=== PATIENT | female | born 1945 | race American Indian/Alaskan Native ===

== ENCOUNTER 2018-03-12 16:45 | Inpatient (IN) | payer MEDICARE ==
[2018-03-12] MEDS ORDERED: Sodium Chloride 0.9% 1,000 ML IV STA (17:32)
--- NOTE | 2018-03-12 17:52 | ED PDOC ---
Syncope/Near Syncope/Dizziness History Per: Patient Additional Complaint(s): 73 y/o with a PMHx of HTN and osteoarthritis presents to ED complaining of lightheadedness and nausea since lunchtime today. Pt reports feeling lightheaded, weak, nauseaous and vomiting a few episodes, vomit was non-bloody and non-bilious. Pt reports not eating anything today but taking Metoprolol on empty stomach. Pt usually eats once or twice a day. Pt feels pressure on her head. Pt denies feeling like the room is spinning aorund her. Pt return from [facility] 1 week ago. Pt denies fever, visual disturbances, hearing deficit, chest pain, SOB, abdominal pain, rash or periphera edema. PMD: Dr Shaikh/Dr Martha BECKER Meds: Metoprolol PMHx: HTN PSHx: denied SHx: denies tobacco, alcohol or rec drugs. <Jose Galvan - Last Filed: 03/12/18 19:00> <Kelsey Betancourt - Last Filed: 03/13/18 22:42> Time Seen by Provider: 03/12/18 17:07 Chief Complaint (Nursing): Dizziness/Lightheaded Supervising Attending Note - Attestation: I have personally seen and examined this patient.: Yes I have fully participated in the care of the patient.: Yes I have reviewed all pertinent clinical information: Yes - Notes: Notes:: Pt states prior to a flight from [place] last week she felt dizzy and unsteady while ambulating, almost fell three times, sxs improved somewhat since then. Today she was walking when she felt lightheaded again and vomited >3 times. Denies CL[place], extremity weakness or paresthesias, CP, SOB, visual changes. PHYSICAL EXAM: HEAD: NCAT EYES: PERRL, EOMI, no nystagmus NECK: Supple NEURO: no facial droop, MS 5/5, sensation intact, FTN intact, HTS intact 20:[address] Hernandes, recommends CTA, ASA and permissive HTN (treat only if >220/110). <Kelsey Betancourt - Last Filed: 03/13/18 22:42> NIHSS Stroke Scale - How Severe is the Stroke Level of Consciousness: 0=Alert LOC to Questions: 0=Both comments correct LOC to commands: 0=Obeys both correctly Best Gaze: 0=Normal Visual: 0=No visual loss Facial: 0=Normal Motor Arm - Left: 0=No drift Motor Arm - Right: 0=No drift Motor Leg - Left: 0=No drift Motor Leg - Right: 0=No drift Limb Ataxia: 0=Absent Sensory: 0=Normal Best Language: 0=No aphasia Dysarthia: 0=Normal articulation Extinction & Inattention (Neglect): 0=Normal, no object Score: 0 <BetancourtRichard weira Denise - Last Filed: 03/13/18 22:42> Past Medical History Vital Signs: Last Vital Signs Temp 97.7 F 03/12/18 16:49 Pulse 55 L 03/12/18 16:49 Resp 20 03/12/18 16:49 BP 143/103 H 03/12/18 16:49 Pulse Ox 99 03/12/18 16:49 - Medical History PMH: HTN - Surgical History Surgical History: No Surg Hx - Family History Family History: States: Unknown Family Hx - Living Arrangements Living Arrangements: With Family - Social History Current smoker - smoking cessation education provided: No Alcohol: None Drugs: Denies <Jose Galvan - Last Filed: 03/12/18 19:00> Vital Signs: Last Vital Signs Temp 97.7 F 03/12/18 16:49 Pulse 55 L 03/12/18 16:49 Resp 20 03/12/18 16:49 BP 143/103 H 03/12/18 16:49 Pulse Ox 99 03/12/18 19:00 - Family History Family History: States: Unknown Family Hx <Kelsey Betancourt - Last Filed: 03/13/18 22:42> - Home Medications Home Medications: Ambulatory Orders Medication Instructions Recorded RX: Etodolac 500 mg PO BID 03/12/18 RX: Simvastatin [Zocor] 20 mg PO HS 03/12/18 RX: Metoprolol Succinate 100 mg PO DAILY #30 tab.er.24h 03/13/18 - Allergies Allergies/Adverse Reactions: Allergies Allergy/AdvReac Type Severity Reaction Status Date / Time iodine Allergy RASH Verified 03/12/18 16:49 Review of Systems Constitutional: Negative for: Fever, Chills ENT: Negative for: Nose Congestion, Throat Pain, Throat Swelling Cardiovascular: Negative for: Chest Pain, Palpitations Respiratory: Negative for: Cough, Shortness of Breath, Sputum Gastrointestinal: Positive for: Nausea, Vomiting. Negative for: Abdominal Pain, Diarrhea, Constipation Genitourinary Female: Negative for: Dysuria, Frequency, Hematuria Musculoskeletal: Negative for: Back Pain, Leg Pain Skin: Negative for: Rash Neurological: Negative for: Weakness, Numbness Psych: Negative for: Anxiety, Depression <Jose Galvan - Last Filed: 03/12/18 19:00> Physical Exam - Physical Exam Appears: Positive for: Uncomfortable Head Exam: Positive for: ATRAUMATIC, NORMAL INSPECTION Eye Exam: Positive for: EOMI, PERRL. Negative for: Nystagmus, Periorbital swelling ENT: Negative for: Nasal Congestion, Pharyngeal Erythema, Tonsillar Exudate Neck: Positive for: Normal, Supple Cardiovascular/Chest: Positive for: Regular Rate, Rhythm Respiratory: Positive for: Normal Breath Sounds Gastrointestinal/Abdominal: Positive for: Bowel Sounds, Soft. Negative for: Tenderness, Organomegaly, Distended, Guarding Extremity: Positive for: Normal ROM. Negative for: Tenderness, Pedal Edema, Calf Tenderness Neurologic/Psych: Positive for: Alert, mattress filler II-XII (grossly intact), Oriented <Jose Galvan - Last Filed: 03/12/18 19:00> - ECG O2 Sat by Pulse Oximetry: 99 <Jose Galvan - Last Filed: 03/12/18 19:00> - Laboratory Results Result Diagrams: 03/12/18 19:06 03/12/18 19:58 <Kelsey Betancourt - Last Filed: 03/13/18 22:42> Medical Decision Making Medical Decision Makin:30, pt was evaluated and examined by bedside. Pt is resting on bed, has a vomit bag on her hands. --EKG --CBC, CMP, urinalysis, troponin I, --Chest X-ray, Head CT. --IV fluids and Zofran. <Jose Galvan - Last Filed: 03/12/18 19:00> Disposition <Jose Galvan - Last Filed: 03/12/18 19:00> - Patient ED Disposition Is Patient to be Admitted: Yes - Disposition Disposition Time: 21:30 - Pt Status Changed To: Hospital Disposition Of: Inpatient - Admit Certification Admit to Inpatient:: After my assessment, the patient will require hospitalization for at least two midnights. This is because of the severity of symptoms shown, intensity of services needed, and/or the medical risk in this patient being treated as an outpatient. - POA Present On Arrival: None <Kelsey Betancourt - Last Filed: 03/13/18 22:42> - Clinical Impression Clinical Impression: Dizziness, Left maxillary sinusitis, T wave inversion on electrocardiogram - Disposition Condition: STABLE - PA / DOWELING MACHINE OPERATOR / Resident Statement MD/DO has examined the patient and agrees with the treatment plan. <Kelsey Betancourt - Last Filed: 03/13/18 22:42>
--- NOTE | 2018-03-12 18:50 | CT ---
Date of service: 03/12/2018 PROCEDURE: CT HEAD WITHOUT CONTRAST. HISTORY: Dizziness COMPARISON: None available TECHNIQUE: Axial computed tomography images were obtained through the head/brain without intravenous contrast. Radiation dose: Total exam DLP = 851.09 mGy-cm. This CT exam was performed using one or more of the following dose reduction techniques: Automated exposure control, adjustment of the mA and/or kV according to patient size, and/or use of iterative reconstruction technique. FINDINGS: HEMORRHAGE: No intracranial hemorrhage. BRAIN: No mass effect or edema. Minimal chronic periventricular white matter ischemic change. No atrophy. VENTRICLES: Unremarkable. No hydrocephalus. CALVARIUM: Unremarkable PARANASAL SINUSES: There is soft tissue density and gas within the left maxillary sinus. There is mild medial bowing of the medial wall of the left maxillary sinus. There is some curvilinear calcifications seen within the sinus. Only a portion of the left maxillary sinus is included in this examination. Findings may reflect abscess/acute sinusitis although the presence of calcification also raises suspicion of allergic fungal sinusitis. This is not consistent with the presence of gas, however. Recommend evaluation with CT of the paranasal sinuses. The remaining paranasal sinuses are unremarkable. MASTOID AIR CELLS: Unremarkable as visualized. No inflammatory changes. OTHER FINDINGS: None. IMPRESSION: Possible acute left maxillary sinusitis. Recommend CT paranasal sinuses. No other acute abnormality.
--- NOTE | 2018-03-12 19:00 | RAD ---
Date of service: 03/12/2018 HISTORY: Vomiting COMPARISON: No prior. TECHNIQUE: Chest PA and lateral FINDINGS: LUNGS: No active pulmonary disease. PLEURA: No significant pleural effusion identified. No pneumothorax apparent. CARDIOVASCULAR: Normal. OSSEOUS STRUCTURES: No significant abnormalities. VISUALIZED UPPER ABDOMEN: Normal. OTHER FINDINGS: None. IMPRESSION: No active disease.
[2018-03-12 19:13] LABS: BASO % 0.1 % (0.0-2.0); EOS % 0.3 % (0.0-4.0); HEMOGLOBIN 14.4 g/dL (12.0-16.0); LYMPH # 1.2 K/uL (1.0-4.3); LYMPH % 11.9 % (20.0-40.0); MEAN CELL VOLUME 85.2 fl (81.0-99.0); MEAN CORPUSCULAR HEMOGLOBIN 27.5 pg (27.0-31.0); MEAN CORPUSCULAR HGB CONC 32.3 g/dL (33.0-37.0); MEAN PLATELET VOLUME 8.8 fl (7.2-11.7); MONO # 0.4 K/uL (0.0-0.8); MONO % 3.6 % (0.0-10.0); NEUT # 8.4 K/uL (1.8-7.0); NEUT % 84.1 % (50.0-75.0); RBC 5.23 Mil/uL (3.80-5.20); RED CELL DISTRIBUTION WIDTH 15.1 % (11.5-14.5); WHITE BLOOD COUNT 9.9 K/uL (4.8-10.8)
[2018-03-12 19:20] LABS: BLOOD UREA NITROGEN 15 mg/dl (7-17); GFR NON-AFRICAN AMERICAN > 60
[2018-03-12 19:29] LABS: ALB/GLOB RATIO 0.9 (1.0-2.1); ALBUMIN 4.3 g/dL (3.5-5.0); ALT/SGPT 25 U/L (9-52); AST/SGOT 47 U/L (14-36)
--- NOTE | 2018-03-12 22:02 | CP.PCM.HP ---
<Perez Sorensen - Last Filed: 03/12/18 22:42> History of Present Illness - History of Present Illness History of Present Illness: CC: "merced been dizzy all week and today it got worse" HPI: 73 y/o female with PMHx of HTN and OA presented for evaluation of worsening dizziness. Pt reports symptoms started last in the airport. She had sudden onset of dizziness after using the bathroom. It was associated with gait instability, nausea and several episodes of forward falls, but no history of injury or trauma. Symptoms remained stable and did not bother the pt during the week. Today her symptoms acutely worsened when she got out of bed. The dizziness is described as feeling "on a boat and spinning inside my head". She reports having worsened unstable gait and has fallen over several times today, but once again without injury. She had about 4-5 episodes of vomiting due to the nausea accompanied with the dizziness. Denies recent illness. no numbness/tingling. No fever/chills. No difficulty speaking or swallowing. Took her metoprolol as prescibed. No associated CP/SOB/palpitations. No urinary symptoms. ROS: as per HPI, 12 systems reviewed PMD: Martha PMHx: HTN, OA Meds: Metoprolol 100mg BID ALL: Iodine (rash) PSurgHx: denies SocialHx: former tobacco abuse, denies etoh/drugs Familyhx: unremarkable Present on Admission - Present on Admission Any Indicators Present on Admission: No History of DVT/PE: No History of Uncontrolled Diabetes: No Urinary Catheter: No Decubitus Ulcer Present: No Past Patient History - Past Social History Smoking Status: Former Smoker Alcohol: None Drugs: Denies Home Situation {Lives}: With Family - CARDIAC Hx Hypertension: Yes - PSYCHIATRIC Hx Substance Use: No Meds Allergies/Adverse Reactions: Allergies Allergy/AdvReac Type Severity Reaction Status Date / Time iodine Allergy RASH Verified 03/12/18 16:49 Physical Exam - Constitutional Appears: Well, Non-toxic, No Acute Distress - Head Exam Head Exam: ATRAUMATIC, NORMOCEPHALIC - Eye Exam Eye Exam: EOMI, Normal appearance, PERRL. absent: Nystagmus Pupil Exam: NORMAL ACCOMODATION. absent: Miosis, Mydriatic, Unequal - ENT Exam ENT Exam: Mucous Membranes Moist - Neck Exam Neck exam: Positive for: Full Rom. Negative for: Lymphadenopathy - Respiratory Exam Respiratory Exam: Clear to Auscultation Bilateral, NORMAL BREATHING PATTERN. absent: Accessory Muscle Use, Prolonged Expiratory Phase, Rales, Rhonchi, Wheezes - Cardiovascular Exam Cardiovascular Exam: REGULAR RHYTHM, RRR, +S1, +S2. absent: Bradycardia, Tachy cardia, Irregular Rhythm, JVD, Rubs, Systolic Murmur - GI/Abdominal Exam GI & Abdominal Exam: Normal Bowel Sounds, Soft. absent: Tenderness - Extremities Exam Extremities exam: Positive for: normal capillary refill, normal inspection, pedal pulses present. Negative for: calf tenderness, pedal edema, tenderness - Neurological Exam Neurological exam: Alert, CN II-XII Intact, Normal Gait, Oriented x3, Reflexes Normal - Expanded Neurological Exam Expanded Patient oriented to: person, place, time Cranial nerves: EOM's Intact: Normal, Facial Palsey w/Forehead Movement: Normal, Facial Palsey w/o Forehead Movement: Normal, Facial Sensation: Normal, Gag Reflex: Normal, Nystagmus: Normal, Tongue Deviation: Normal Ataxia: No Cerebellar Function: Finger to Nose: Normal, Heel to Ragland: Normal, Romberg: Normal Upper motor neuron: Babinski Sign: Normal, Perez Neglect: Normal, Pronator Drift: Normal, Sensory Extinction: Normal Neuro motor strength exam: Left Upper Extremity: 5, Right Upper Extremity: 5, Left Lower Extremity: 5, Right Lower Extremity: 5 DTR: Patellar Left: 2+, Patellar Right: 2+ Coma Scale Eye Opening: SPONTANEOUS Coma Scale Motor Response: OBEYS COMMANDS Coma Scale Verbal: Oriented Coma Scale Total: 15 - Psychiatric Exam Psychiatric exam: Normal Affect, Normal Mood - Skin Skin Exam: Dry, Normal Color, Warm Results - Vital Signs Recent Vital Signs: Last Vital Signs Temp 97.7 F 03/12/18 16:49 Pulse 55 L 03/12/18 16:49 Resp 20 03/12/18 16:49 BP 143/103 H 03/12/18 16:49 Pulse Ox 99 03/12/18 19:00 - Labs Result Diagrams: 03/12/18 19:06 03/12/18 19:58 Labs: Laboratory Results - last 24 hr 03/12/18 03/12/18 03/12/18 17:38 17:45 19:06 WBC 9.9 RBC 5.23 H Hgb 14.4 Hct 44.6 MCV 85.2 MCH 27.5 MCHC 32.3 L RDW 15.1 H Plt Count 200 MPV 8.8 Neut % (Auto) 84.1 H Lymph % (Auto) 11.9 L Mcmullen % (Auto) 3.6 Eos % (Auto) 0.3 Baso % (Auto) 0.1 Neut # (Auto) 8.4 H Lymph # (Auto) 1.2 Mcmullen # (Auto) 0.4 Eos # (Auto) 0.0 Baso # (Auto) 0.0 Sodium Potassium Chloride Carbon Dioxide Anion Gap BUN Creatinine Est GFR ( Amer) Est GFR (Non-Af Amer) POC Glucose (mg/dL) 95 113 H Random Glucose Calcium Total Bilirubin AST ALT Alkaline Phosphatase Troponin I Total Protein Albumin Globulin Albumin/Globulin Ratio 03/12/18 03/12/18 19:06 19:58 WBC RBC Hgb Hct MCV MCH MCHC RDW Plt Count MPV Neut % (Auto) Lymph % (Auto) Mcmullen % (Auto) Eos % (Auto) Baso % (Auto) Neut # (Auto) Lymph # (Auto) Mcmullen # (Auto) Eos # (Auto) Baso # (Auto) Sodium 139 Potassium 6.0 H 4.2 Chloride 106 Carbon Dioxide 26 Anion Gap 13 BUN 15 Creatinine 0.6 L Est GFR ( Amer) > 60 Est GFR (Non-Af Amer) > 60 POC Glucose (mg/dL) Random Glucose 110 H Calcium 9.0 Total Bilirubin 1.3 AST 47 H ALT 25 Alkaline Phosphatase 66 Troponin I 0.0130 Total Protein 9.0 H Albumin 4.3 Globulin 4.7 H Albumin/Globulin Ratio 0.9 L Assessment & Plan - Assessment and Plan (Free Text) Assessment: 73 y/o female with PMHx of HTN and OA admitted for intractable dizziness and abnormal EKG. Plan: 1) Dizziness -head CT: possible sinusitis, otherwise unremarkable -Maxillofacial CT: complete opacification of left maxillary sinus (asymptomatic) -ENT consult pending -head neck CTA: pending -permissive HTN as per neurology -neuro consult, f/u recs -s/p ASA -tele monitoring -PT/OT -Lipid panel/Hba1c pending 2) Abnormal EKG -bradycardia @ 55bpm, LAD, 1st degree AV block, QTc prolongation @ 478, T-wave inversions in lateral leads, LVH criteria, -no prior EKGs available for comparison -troponin <0.0120 -trend troponin Q6H -repeat EKG in am -echo in am -cardiology consult pending -hold metoprolol 3) Hypertension -stable -permissive HTN -treat only >220/110 -hold metoprolol 100mg BID -monitor 4) Prophylaxis -Lovenox 40gm SC QD 5) Diet -heart healthy 6) Code Status -full code <Andrew Camargo - Last Filed: 03/13/18 08:27> Results - Vital Signs Recent Vital Signs: Last Vital Signs Temp 97.6 F 03/13/18 05:00 Pulse 97 H 03/13/18 05:00 Resp 18 03/13/18 05:00 BP 163/91 H 03/13/18 05:00 Pulse Ox 98 03/13/18 05:00 - Labs Result Diagrams: 03/12/18 19:06 03/12/18 19:58 Labs: Laboratory Results - last 24 hr 03/12/18 03/12/18 03/12/18 17:38 17:45 19:06 WBC 9.9 RBC 5.23 H Hgb 14.4 Hct 44.6 MCV 85.2 MCH 27.5 MCHC 32.3 L RDW 15.1 H Plt Count 200 MPV 8.8 Neut % (Auto) 84.1 H Lymph % (Auto) 11.9 L Mcmullen % (Auto) 3.6 Eos % (Auto) 0.3 Baso % (Auto) 0.1 Neut # (Auto) 8.4 H Lymph # (Auto) 1.2 Mcmullen # (Auto) 0.4 Eos # (Auto) 0.0 Baso # (Auto) 0.0 D-Dimer, Quantitative Sodium Potassium Chloride Carbon Dioxide Anion Gap BUN Creatinine Est GFR ( Amer) Est GFR (Non-Af Amer) POC Glucose (mg/dL) 95 113 H Random Glucose Calcium Total Bilirubin AST ALT Alkaline Phosphatase Troponin I Total Protein Albumin Globulin Albumin/Globulin Ratio Triglycerides Cholesterol LDL Cholesterol Direct HDL Cholesterol TSH 3rd Generation Urine Color Urine Clarity Urine pH Ur Specific Arbela Urine Protein Urine Glucose (UA) Urine Ketones Urine Blood Urine Nitrate Urine Bilirubin Urine Urobilinogen Ur Leukocyte Esterase Urine RBC (Auto) Urine Microscopic WBC Ur Squamous Epith Cells Urine Bacteria 03/12/18 03/12/18 03/12/18 19:06 19:58 22:02 WBC RBC Hgb Hct MCV MCH MCHC RDW Plt Count MPV Neut % (Auto) Lymph % (Auto) Mcmullen % (Auto) Eos % (Auto) Baso % (Auto) Neut # (Auto) Lymph # (Auto) Mcmullen # (Auto) Eos # (Auto) Baso # (Auto) D-Dimer, Quantitative Sodium 139 Potassium 6.0 H 4.2 Chloride 106 Carbon Dioxide 26 Anion Gap 13 BUN 15 Creatinine 0.6 L Est GFR ( Amer) > 60 Est GFR (Non-Af Amer) > 60 POC Glucose (mg/dL) Random Glucose 110 H Calcium 9.0 Total Bilirubin 1.3 AST 47 H ALT 25 Alkaline Phosphatase 66 Troponin I 0.0130 Total Protein 9.0 H Albumin 4.3 Globulin 4.7 H Albumin/Globulin Ratio 0.9 L Triglycerides Cholesterol LDL Cholesterol Direct HDL Cholesterol TSH 3rd Generation 0.50 Urine Color Yellow Urine Clarity Cloudy Urine pH 7.0 Ur Specific Arbela 1.014 Urine Protein Negative Urine Glucose (UA) Neg Urine Ketones Negative Urine Blood Negative Urine Nitrate Negative Urine Bilirubin Negative Urine Urobilinogen 2.0 H Ur Leukocyte Esterase Small Urine RBC (Auto) 3 Urine Microscopic WBC 10 H Ur Squamous Epith Cells 9 H Urine Bacteria Rare 03/13/18 03/13/18 03/13/18 00:02 01:33 01:33 WBC RBC Hgb Hct MCV MCH MCHC RDW Plt Count MPV Neut % (Auto) Lymph % (Auto) Mcmullen % (Auto) Eos % (Auto) Baso % (Auto) Neut # (Auto) Lymph # (Auto) Mcmullen # (Auto) Eos # (Auto) Baso # (Auto) D-Dimer, Quantitative 229 Sodium Potassium Chloride Carbon Dioxide Anion Gap BUN Creatinine Est GFR ( Amer) Est GFR (Non-Af Amer) POC Glucose (mg/dL) Random Glucose Calcium Total Bilirubin AST ALT Alkaline Phosphatase Troponin I < 0.0120 Total Protein Albumin Globulin Albumin/Globulin Ratio Triglycerides 128 Cholesterol 222 H LDL Cholesterol Direct 134 H HDL Cholesterol 46 TSH 3rd Generation Urine Color Urine Clarity Urine pH Ur Specific Arbela Urine Protein Urine Glucose (UA) Urine Ketones Urine Blood Urine Nitrate Urine Bilirubin Urine Urobilinogen Ur Leukocyte Esterase Urine RBC (Auto) Urine Microscopic WBC Ur Squamous Epith Cells Urine Bacteria Attending/Attestation - Attestation I have personally seen and examined this patient.: Yes I have fully participated in the care of the patient.: Yes I have reviewed all pertinent clinical information: Yes Notes (Text): 03/13/18 08:17 I saw and examined this patient shoulder to shoulder with Dr Sorensen. I agree with the assessment and plan outlined. This is a 73 years old female with hx of HTN. she comes with one week of dizziness, lightheadedness, clogged ears after traveling on a plane. No headaches nor chest pain.The CT head showed no hemorrhage nor sigh of Infarction. the CT of the Maxilo facial showed the left Maxillary sinus Opaci fied. Alco the EKG was significantly abnormal with T wave inversion in leads I, aVL, V4-6 with first degree AV block and Qtc prolongation. We will follow ENT consult for the Left Maxillary Sinus Opacity with the Ear clogging and the dizziness. Neuro consult to evaluate for Cerebellar Infarction and Cardiology to evaluate the abnormal EKG and the probability of Othostatic hypotension fom the Lopressor.
--- NOTE | 2018-03-12 22:05 | CARD ---
APPROVED REPORT Date of service: 03/12/2018 EKG Measurement Heart [id number] <Conclusion> Sinus bradycardia with 1st degree AV block Voltage criteria for left ventricular hypertrophy T wave abnormality, consider lateral ischemia Prolonged QT Abnormal ECG
[2018-03-12] MEDS ORDERED: DiphenhydrAMINE 50 mg/ml Inj IVP STA (22:08)
[2018-03-12 22:13] LABS: SQUAMOUS EPITHIAL 9 /hpf (0-5); URINE BACTERIA RARE (<OCC); URINE BILIRUBIN NEGATIVE (NEGATIVE); URINE BLOOD NEGATIVE (NEGATIVE); URINE CLARITY CLOUDY (Clear); URINE COLOR YELLOW (YELLOW); URINE GLUCOSE (UA) NEG (Normal); URINE LEUKOCYTE ESTERASE SMALL Leu/uL (Negative); URINE PROTEIN NEGATIVE (NEGATIVE)
[2018-03-12] MEDS ORDERED: DiphenhydrAMINE 50 mg/ml Inj ONE (22:16)
[2018-03-12] MEDS ORDERED: Sodium Chloride 0.9% 50 ML IV ONE (23:16)
[2018-03-12] MEDS ORDERED: Iodixanol 320 MG/ML 100 ML BOTTLE IV ONE (23:16)
[2018-03-13 00:11] LABS: HDL CHOLESTEROL 46 MG/DL (30-70)
[2018-03-13 00:23] LABS: LDL CHOLESTEROL 134 mg/dL (0-129)
--- NOTE | 2018-03-13 08:53 | CT ---
Date of service: 03/12/2018 PROCEDURE: CT MAXILLOFACIAL BONES WITHOUT CONTRAST HISTORY: Sinus disease COMPARISON: None available. TECHNIQUE: Contiguous axial CT images of the maxillofacial bones were obtained. Coronal and sagittal reformats were generated. Radiation dose: Total exam DLP = 821.77 821.77 mGy-cm. This CT exam was performed using one or more of the following dose reduction techniques: Automated exposure control, adjustment of the mA and/or kV according to patient size, and/or use of iterative reconstruction technique. FINDINGS: NASAL BONES: There is mild mucosal thickening noted in the nasal cavity. ORBITS: Unremarkable. PARANASAL SINUSES/ MASTOIDS: There is complete opacification of the left maxillary sinus. There are postsurgical changes in the medial wall of left maxillary sinus suggestive of prior sinusitis surgery and resection of the left ostiomeatal complex. The rest of the paranasal sinuses are clear. MAXILLA: No evidence of acute pathology. MANDIBLE/ TEMPOROMANDIBULAR JOINTS: Unremarkable. SKULL BASE: Unremarkable. TEMPORAL BONES: Middle ears and mastoid grossly unremarkable. OTHER FINDINGS: Deformity noted in the bilateral lamina papyracea likely due to old fracture. The orbits are otherwise grossly unremarkable. IMPRESSION: Complete opacification of the left maxillary sinus suggestive of sinusitis. Postsurgical changes involving the medial wall of the left maxillary sinus. Findings likely represent left maxillary sinusitis. Preliminary report was submitted and contains concordance findings.
[2018-03-13] MEDS ORDERED: Enoxaparin 40 mg Syringe SC SCH (09:00)
--- NOTE | 2018-03-13 10:00 | MRI ---
Date of service: 03/13/2018 PROCEDURE: MRI BRAIN WITHOUT CONTRAST HISTORY: dizziness COMPARISON: Comparison is made to the previous CT and CTA of the head dated 03/12/2018 TECHNIQUE: Multiplanar, multisequence MR images of the brain were obtained without intravenous contrast enhancement. FINDINGS: HEMORRHAGE: No evidence of acute intracranial hemorrhage. There are few punctate foci of susceptibility artifact in the GRE images may represent punctate calcification or foci of hemosiderin deposition. DWI: No evidence of an acute or early subacute infarction. BRAIN PARENCHYMA: No mass effect or edema. There is small focal encephalomalacia at the left parietal occipital lobe posterior to the occipital horn of the left lateral ventricle. Mild atrophy is noted. Mild white matter changes are also noted suggestive but nonspecific for chronic microvascular ischemic disease. VENTRICLES: Unremarkable. No hydrocephalus. CRANIUM: Unremarkable. ORBITS: Grossly unremarkable. PARANASAL SINUSES/MASTOIDS: Complete opacification of the left maxillary sinus with heterogeneous signal may represent consent trait dense secretions. The possibility of acute or chronic sinusitis cannot be excluded. VASCULAR SYSTEM: Skull base flow voids intact. OTHER FINDINGS: None. IMPRESSION: No evidence of acute infarct or intracranial hemorrhage. No evidence of mass lesion mass effect or midline shift. Chronic findings as discussed above.
--- NOTE | 2018-03-13 10:50 | CARD ---
APPROVED REPORT Date of service: 03/13/2018 EXAM: Two-dimensional and M-mode echocardiogram with Doppler and color Doppler. Other Information Quality : AverageRhythm : NSR INDICATION Abnormal EKG/Arrhythmia Dizziness and Vertigo 2D DIMENSIONS IVSd1.23 (0.7-1.1cm)LVDd4.34 (3.9-5.9cm) LVOT Diameter2.13 (1.8-2.4cm)PWd1.09 (0.7-1.1cm) IVSs1.58 (0.8-1.2cm)LVDs2.34 (2.5-4.0cm) FS (%) 46.1 %PWs1.71 (0.8-1.2cm) M-Mode DIMENSIONS Left Atrium (MM)3.12 (2.5-4.0cm)IVSd1.03 (0.7-1.1cm) Aortic Root3.76 (2.2-3.7cm)LVDd5.85 (4.0-5.6cm) Aortic Cusp Exc.2.12 (1.5-2.0cm)PWd1.29 (0.7-1.1cm) IVSs1.88 cmFS (%) 57 % LVDs2.50 (2.0-3.8cm)PWs1.88 cm Aortic Valve AoV Peak Viqksmuh112.0cm/sAoV VTI29.1cmAO Peak GR.9mmHg LVOT Peak Yrknouxp090.0cm/sLVOT VTI23.39cmAO Mean GR.5mmHg GHADA (VMAX)1.70je7KVW (VTI)1.46cm2 Mitral Valve E/A ratio0.0 TDI E/Lateral E'0.0E/Medial E'0.0 LEFT VENTRICLE The left ventricle is normal size. There is normal left ventricular wall thickness. The left ventricular systolic function is normal. The estimated ejection fraction is 60-65%. No regional wall motion abnormalities noted.. Transmitral Doppler flow pattern is Grade I-abnormal relaxation pattern. No left ventricle thrombus noted on this study. There is no ventricular septal defect visualized. There is no left ventricular aneurysm. There is no mass noted in the left ventricle. RIGHT VENTRICLE The right ventricle is normal size. There is normal right ventricular wall thickness. The right ventricular systolic function is normal. ATRIA The left atrium size is normal. The right atrium size is normal. The interatrial septum is intact with no evidence for an atrial septal defect. AORTIC VALVE The aortic valve is normal in structure. No aortic regurgitation is present. There is no aortic valvular stenosis. There is no aortic valvular vegetation. MITRAL VALVE The mitral valve is normal in structure. There is no evidence of mitral valve prolapse. There is no mitral valve stenosis. There is no mitral valve regurgitation noted. TRICUSPID VALVE The tricuspid valve is normal in structure. There is no tricuspid valve regurgitation noted. There is no tricuspid valve prolapse or vegetation. There is no tricuspid valve stenosis. PULMONIC VALVE The pulmonary valve is normal in structure. There is no pulmonic valvular regurgitation. There is no pulmonic valvular stenosis. GREAT VESSELS The aortic root is normal in size. The ascending aorta is normal in size. The pulmonary artery is normal. The IVC is normal in size and collapses >50% with inspiration. PERICARDIAL EFFUSION There is no pericardial effusion. There is no pleural effusion. <Conclusion> The estimated ejection fraction is 60-65% Transmitral Doppler flow pattern is Grade I-abnormal relaxation pattern. The left atrium size is normal. There is no significant tricuspid valve regurgitation noted.
--- NOTE | 2018-03-13 11:09 | CP.PCM.PN ---
<Xiang Pugh - Last Filed: 03/13/18 11:24> Subjective - Date & Time of Evaluation Date of Evaluation: 03/13/18 Time of Evaluation: 10:56 - Subjective Subjective: 73 YO F seen resting in bed comfortably states she is doing better and is not currently dizzy. Has a minimal headache 2/10 intensity. - She is currently not dizzy or nausious, is currently seen eating her breakfast. - She associates that her dizziness began after she started using the generic version of her Etodolac for her arthritis. States it never happened when she was using the brand name. - She has been also having some SOB on exertion after a couple of blocks in the past few months since she has started trying to loose weight. States she sleeps with two pillows to sleep because she feels more comfortable. However Echo was done yesterday and had preserved EF. - Discussed CT findings with her. Patient denies of any maxillary tenderness or history of sinusitis. - Denies any chest pain, SOb, N/V/D Objective - Vital Signs/Intake and Output Vital Signs (last 24 hours): Temp Pulse Resp BP Pulse Ox 98.1 F 93 H 16 164/99 H 96 03/13/18 09:00 03/13/18 09:00 03/13/18 09:00 03/13/18 09:00 03/13/18 09:00 - Medications Medications: Current Medications Aspirin (Aspirin Chewable) 81 mg PO DAILY [facility] Last Admin: 03/13/18 08:13 Dose: 81 mg Atorvastatin Calcium (Lipitor) 10 mg PO DAILY [facility] Last Admin: 03/13/18 10:34 Dose: 10 mg Enoxaparin Sodium (Lovenox) 40 mg SC DAILY [facility]; Protocol Last Admin: 03/13/18 08:11 Dose: 40 mg Ondansetron HCl (Zofran Inj) 4 mg IVP Q6 PRN PRN Reason: Nausea/Vomiting - Labs Labs: 03/12/18 19:06 03/12/18 19:58 - Constitutional Appears: No Acute Distress - Head Exam Head Exam: NORMAL INSPECTION - Eye Exam Eye Exam: Normal appearance - Neck Exam Neck Exam: Full ROM - Respiratory Exam Respiratory Exam: Clear to Ausculation Bilateral, NORMAL BREATHING PATTERN. absent: Rhonchi, Wheezes - Cardiovascular Exam Cardiovascular Exam: REGULAR RHYTHM, +S1, +S2 - GI/Abdominal Exam GI & Abdominal Exam: Soft, Normal Bowel Sounds. absent: Tenderness - Neurological Exam Neurological Exam: Alert, Awake, CN II-XII Intact, Oriented x3 - Skin Skin Exam: Normal Color, Warm Assessment and Plan - Assessment and Plan (Free Text) Assessment: 73 y/o female with PMHx of HTN and OA admitted for intractable dizziness and abnormal EKG. Plan: 1) Dizziness -head CT: possible sinusitis, otherwise unremarkable - Head MRI: No evidence of acure infarct or intracranial hemorrhage. No evidence of mass lesion mass effect or midline shift -Maxillofacial CT: complete opacification of left maxillary sinus (asymptomatic) -ENT consult pending -head neck CTA: pending -permissive HTN as per neurology -neuro consult, f/u recs -s/p ASA -tele monitoring -PT/OT -Lipid panel/Hba1c pending 2) Abnormal EKG -bradycardia @ 55bpm, LAD, 1st degree AV block, QTc prolongation @ 478, T-wave inversions in lateral leads, LVH criteria, -no prior EKGs available for comparison -troponin: .0130, <0.0120 -trend troponin Q6H -echo: Shows preserved EF -cardiology consult pending - F/U with repeat EKG -hold metoprolol 3) Hypertension -stable -permissive HTN -treat only >220/110 -hold metoprolol 100mg BID -monitor 4) Prophylaxis -Lovenox 40gm SC QD 5) Diet -heart healthy 6) Code Status -full code <MirandaGiovani D - Last Filed: 03/13/18 17:45> Objective - Vital Signs/Intake and Output Vital Signs (last 24 hours): Temp Pulse Resp BP Pulse Ox 98.4 F 88 18 171/107 H 98 03/13/18 16:15 03/13/18 16:15 03/13/18 16:15 03/13/18 16:15 03/13/18 16:15 - Medications Medications: Current Medications Aspirin (Aspirin Chewable) 81 mg PO DAILY [facility] Last Admin: 03/13/18 08:13 Dose: 81 mg Atorvastatin Calcium (Lipitor) 10 mg PO DAILY [facility] Last Admin: 03/13/18 10:34 Dose: 10 mg Enoxaparin Sodium (Lovenox) 40 mg SC DAILY [facility]; Protocol Last Admin: 03/13/18 08:11 Dose: 40 mg Metoprolol Succinate (Toprol Xl) 100 mg PO STAT ST[facility] Stop: 03/13/18 17:38 Ondansetron HCl (Zofran Inj) 4 mg IVP Q6 PRN PRN Reason: Nausea/Vomiting - Labs Labs: 03/12/18 19:06 03/12/18 19:58 Attending/Attestation - Attestation I have personally seen and examined this patient.: Yes I have fully participated in the care of the patient.: Yes I have reviewed all pertinent clinical information, including history, physical exam and plan: Yes
[2018-03-13 16:16] VITALS: BP 171/107; PULSE 88; RESP 18; TEMP 98.4; O2SAT 98
--- NOTE | 2018-03-13 17:35 | CP.PCM.CON ---
History of Present Illness - History of Present Illness History of Present Illness: Neurology Consultation Note: Mrs. Ragland is a 73-year-old woman with a past medical history of RA and HTN, who was on the plane coming back from the [facility], when she developed some light-headedness. She continued to feel that way when she landed. She presented to the ED and her BP was elevated. MRI of the brain was done and did not show any concerning findings. The patient is now back to baseline and denied headache, light-headedness, visual changes or any other neurological deficits. She states that she recently started taking generic niacin and feels that she gets these symptoms from it. Review of Systems - Review of Systems All systems: reviewed and no additional remarkable complaints except Past Patient History - Past Medical History & Family History Past Medical History?: Yes - Past Social History Smoking Status: Former Smoker - CARDIAC Hx Cardiac Disorders: Yes Hx Hypertension: Yes - PULMONARY Hx Respiratory Disorders: No - NEUROLOGICAL Hx Neurological Disorder: No - HEENT Hx HEENT Problems: No - RENAL Hx Chronic Kidney Disease: No - ENDOCRINE/METABOLIC Hx Endocrine Disorders: No - HEMATOLOGICAL/ONCOLOGICAL Hx Blood Disorders: No - INTEGUMENTARY Hx Dermatological Problems: No - MUSCULOSKELETAL/RHEUMATOLOGICAL Hx Musculoskeletal Disorders: Yes Hx Arthritis: Yes Hx Falls: No - GASTROINTESTINAL Hx Gastrointestinal Disorders: No - GENITOURINARY/GYNECOLOGICAL Hx Genitourinary Disorders: No - PSYCHIATRIC Hx Psychophysiologic Disorder: No Hx Substance Use: No - SURGICAL HISTORY Hx Surgeries: Yes Other/Comment: As per pt, foot sx for bunion - ANESTHESIA Hx Anesthesia: Yes Hx Anesthesia Reactions: No Meds Allergies/Adverse Reactions: Allergies Allergy/AdvReac Type Severity Reaction Status Date / Time iodine Allergy RASH Verified 03/12/18 16:49 - Medications Medications: Current Medications Aspirin (Aspirin Chewable) 81 mg PO DAILY [facility] Last Admin: 03/13/18 08:13 Dose: 81 mg Atorvastatin Calcium (Lipitor) 10 mg PO DAILY [facility] Last Admin: 03/13/18 10:34 Dose: 10 mg Enoxaparin Sodium (Lovenox) 40 mg SC DAILY [facility]; Protocol Last Admin: 03/13/18 08:11 Dose: 40 mg Ondansetron HCl (Zofran Inj) 4 mg IVP Q6 PRN PRN Reason: Nausea/Vomiting Physical Exam - Constitutional Appears: Well - Head Exam Head Exam: ATRAUMATIC, NORMAL INSPECTION, NORMOCEPHALIC - Eye Exam Eye Exam: EOMI, Normal appearance, PERRL - ENT Exam ENT Exam: Mucous Membranes Moist, Normal Exam - Respiratory Exam Respiratory Exam: Clear to Auscultation Bilateral, NORMAL BREATHING PATTERN - GI/Abdominal Exam GI & Abdominal Exam: Normal Bowel Sounds, Soft. absent: Tenderness - Rectal Exam Rectal Exam: Deferred - Neurological Exam Neurological exam: Alert, CN II-XII Intact, Normal Gait, Oriented x3, Reflexes Normal - Psychiatric Exam Psychiatric exam: Normal Affect, Normal Mood - Skin Skin Exam: Dry, Intact, Normal Color, Warm Results - Vital Signs Recent Vital Signs: Last Vital Signs Temp 98.4 F 03/13/18 16:15 Pulse 88 03/13/18 16:15 Resp 18 03/13/18 16:15 BP 171/107 H 03/13/18 16:15 Pulse Ox 98 03/13/18 16:15 - Labs Result Diagrams: 03/12/18 19:06 03/12/18 19:58 Labs: Laboratory Results - last 24 hr 03/12/18 03/12/18 03/12/18 17:38 17:45 19:06 WBC 9.9 RBC 5.23 H Hgb 14.4 Hct 44.6 MCV 85.2 MCH 27.5 MCHC 32.3 L RDW 15.1 H Plt Count 200 MPV 8.8 Neut % (Auto) 84.1 H Lymph % (Auto) 11.9 L [place] % (Auto) 3.6 Eos % (Auto) 0.3 Baso % (Auto) 0.1 Neut # (Auto) 8.4 H Lymph # (Auto) 1.2 [place] # (Auto) 0.4 Eos # (Auto) 0.0 Baso # (Auto) 0.0 D-Dimer, Quantitative Sodium Potassium Chloride Carbon Dioxide Anion Gap BUN Creatinine Est GFR ( Amer) Est GFR (Non-Af Amer) POC Glucose (mg/dL) 95 113 H Random Glucose Calcium Total Bilirubin AST ALT Alkaline Phosphatase Troponin I Total Protein Albumin Globulin Albumin/Globulin Ratio Triglycerides Cholesterol LDL Cholesterol Direct HDL Cholesterol TSH 3rd Generation Urine Color Urine Clarity Urine pH Ur Specific [place] Urine Protein Urine Glucose (UA) Urine Ketones Urine Blood Urine Nitrate Urine Bilirubin Urine Urobilinogen Ur Leukocyte Esterase Urine RBC (Auto) Urine Microscopic WBC Ur Squamous Epith Cells Urine Bacteria 03/12/18 03/12/18 03/12/18 19:06 19:58 22:02 WBC RBC Hgb Hct MCV MCH MCHC RDW Plt Count MPV Neut % (Auto) Lymph % (Auto) [place] % (Auto) Eos % (Auto) Baso % (Auto) Neut # (Auto) Lymph # (Auto) [place] # (Auto) Eos # (Auto) Baso # (Auto) D-Dimer, Quantitative Sodium 139 Potassium 6.0 H 4.2 Chloride 106 Carbon Dioxide 26 Anion Gap 13 BUN 15 Creatinine 0.6 L Est GFR ( Amer) > 60 Est GFR (Non-Af Amer) > 60 POC Glucose (mg/dL) Random Glucose 110 H Calcium 9.0 Total Bilirubin 1.3 AST 47 H ALT 25 Alkaline Phosphatase 66 Troponin I 0.0130 Total Protein 9.0 H Albumin 4.3 Globulin 4.7 H Albumin/Globulin Ratio 0.9 L Triglycerides Cholesterol LDL Cholesterol Direct HDL Cholesterol TSH 3rd Generation 0.50 Urine Color Yellow Urine Clarity Cloudy Urine pH 7.0 Ur Specific [place] 1.014 Urine Protein Negative Urine Glucose (UA) Neg Urine Ketones Negative Urine Blood Negative Urine Nitrate Negative Urine Bilirubin Negative Urine Urobilinogen 2.0 H Ur Leukocyte Esterase Small Urine RBC (Auto) 3 Urine Microscopic WBC 10 H Ur Squamous Epith Cells 9 H Urine Bacteria Rare 03/13/18 03/13/18 03/13/18 00:02 01:33 01:33 WBC RBC Hgb Hct MCV MCH MCHC RDW Plt Count MPV Neut % (Auto) Lymph % (Auto) [place] % (Auto) Eos % (Auto) Baso % (Auto) Neut # (Auto) Lymph # (Auto) [place] # (Auto) Eos # (Auto) Baso # (Auto) D-Dimer, Quantitative 229 Sodium Potassium Chloride Carbon Dioxide Anion Gap BUN Creatinine Est GFR ( Amer) Est GFR (Non-Af Amer) POC Glucose (mg/dL) Random Glucose Calcium Total Bilirubin AST ALT Alkaline Phosphatase Troponin I < 0.0120 Total Protein Albumin Globulin Albumin/Globulin Ratio Triglycerides 128 Cholesterol 222 H LDL Cholesterol Direct 134 H HDL Cholesterol 46 TSH 3rd Generation Urine Color Urine Clarity Urine pH Ur Specific [place] Urine Protein Urine Glucose (UA) Urine Ketones Urine Blood Urine Nitrate Urine Bilirubin Urine Urobilinogen Ur Leukocyte Esterase Urine RBC (Auto) Urine Microscopic WBC Ur Squamous Epith Cells Urine Bacteria Assessment & Plan (1) Light headedness Assessment and Plan: This may be due to the BP elevation or a reaction to the niacin. I recommend stopping niacin and controlling BP. No further recommendations from a neurological standpoint. Thank you for this consultation. Status: Resolved
[2018-03-13] MEDS ORDERED: Metoprolol Succinate 100 mg XL Tab PO STA (17:37)
--- NOTE | 2018-03-13 17:59 | CP.PCM.DIS ---
Provider - Provider Date of Admission: 03/12/18 21:41 Attending physician: Andrew Camargo Primary care physician: Dr Beauchamp Consults: Dr J Carlos Hernandes Time Spent in preparation of Discharge (in minutes): 25 Diagnosis - Discharge Diagnosis (1) Light headedness Status: Resolved Comment: possible dizziness because of low BP from taking Metoprolol Succinate 100mg twice a day instead of once a day. symptoms resolved but BP was elevated. resume Metoprolol Succinate 100mg PO once a day (2) HTN (hypertension) Status: Chronic Comment: continue Metoprolol Succinate once a day (3) Left maxillary sinusitis Status: Acute Comment: unsure if acute or chronic. follow up with Dr Rosas as outpatient Hospital Course - Lab Results Lab Results: Most Recent Lab Values WBC 9.9 K/uL (4.8-10.8) 03/12/18 19:06 RBC 5.23 Mil/uL (3.80-5.20) H 03/12/18 19:06 Hgb 14.4 g/dL (12.0-16.0) 03/12/18 19:06 Hct 44.6 % (34.0-47.0) 03/12/18 19:06 MCV 85.2 fl (81.0-99.0) 03/12/18 19:06 MCH 27.5 pg (27.0-31.0) 03/12/18 19:06 MCHC 32.3 g/dL (33.0-37.0) L 03/12/18 19:06 RDW 15.1 % (11.5-14.5) H 03/12/18 19:06 Plt Count 200 K/uL (130-400) 03/12/18 19:06 MPV 8.8 fl (7.2-11.7) 03/12/18 19:06 Neut % (Auto) 84.1 % (50.0-75.0) H 03/12/18 19:06 Lymph % (Auto) 11.9 % (20.0-40.0) L 03/12/18 19:06 [place] % (Auto) 3.6 % (0.0-10.0) 03/12/18 19:06 Eos % (Auto) 0.3 % (0.0-4.0) 03/12/18 19:06 Baso % (Auto) 0.1 % (0.0-2.0) 03/12/18 19:06 Neut # (Auto) 8.4 K/uL (1.8-7.0) H 03/12/18 19:06 Lymph # (Auto) 1.2 K/uL (1.0-4.3) 03/12/18 19:06 [place] # (Auto) 0.4 K/uL (0.0-0.8) 03/12/18 19:06 Eos # (Auto) 0.0 K/uL (0.0-0.7) 03/12/18 19:06 Baso # (Auto) 0.0 K/uL (0.0-0.2) 03/12/18 19:06 D-Dimer, Quantitative 229 ng/mlDDU (0-230) 03/13/18 01:33 Sodium 139 mmol/l (132-148) 03/12/18 19:06 Potassium 4.2 MMOL/L (3.6-5.0) 03/12/18 19:58 Chloride 106 mmol/L (98-107) 03/12/18 19:06 Carbon Dioxide 26 mmol/L (22-30) 03/12/18 19:06 Anion Gap 13 (10-20) 03/12/18 19:06 BUN 15 mg/dl (7-17) 03/12/18 19:06 Creatinine 0.6 mg/dl (0.7-1.2) L 03/12/18 19:06 Est GFR ( Amer) > 60 03/12/18 19:06 Est GFR (Non-Af Amer) > 60 03/12/18 19:06 POC Glucose (mg/dL) 113 mg/dL (65-110) H 03/12/18 17:45 Random Glucose 110 mg/dL (65-105) H 03/12/18 19:06 Calcium 9.0 mg/dL (8.4-10.2) 03/12/18 19:06 Total Bilirubin 1.3 mg/dl (0.2-1.3) 03/12/18 19:06 AST 47 U/L (14-36) H 03/12/18 19:06 ALT 25 U/L (9-52) 03/12/18 19:06 Alkaline Phosphatase 66 U/L (38-126) 03/12/18 19:06 Troponin I < 0.0120 ng/mL (0.00-0.120) 03/13/18 01:33 Total Protein 9.0 G/DL (6.3-8.2) H 03/12/18 19:06 Albumin 4.3 g/dL (3.5-5.0) 03/12/18 19:06 Globulin 4.7 gm/dL (2.2-3.9) H 03/12/18 19:06 Albumin/Globulin Ratio 0.9 (1.0-2.1) L 03/12/18 19:06 Triglycerides 128 mg/DL (0-149) 03/13/18 00:02 Cholesterol 222 mg/dL (0-199) H 03/13/18 00:02 LDL Cholesterol Direct 134 mg/dL (0-129) H 03/13/18 00:02 HDL Cholesterol 46 MG/DL (30-70) 03/13/18 00:02 TSH 3rd Generation 0.50 mIU/ML (0.46-4.68) 03/12/18 19:06 Urine Color Yellow (YELLOW) 03/12/18 22:02 Urine Clarity Cloudy (Clear) 03/12/18 22: Urine pH 7.0 (5.0-8.0) 03/12/18 22:02 Ur Specific [place] 1.014 (1.003-1.030) 03/12/18 22:02 Urine Protein Negative mg/dL (NEGATIVE) 03/12/18 22:02 Urine Glucose (UA) Neg mg/dL (Normal) 03/12/18 22: Urine Ketones Negative mg/dL (NEGATIVE) 03/12/18 22: Urine Blood Negative (NEGATIVE) 03/12/18 22: Urine Nitrate Negative (NEGATIVE) 03/12/18 22: Urine Bilirubin Negative (NEGATIVE) 03/12/18 22: Urine Urobilinogen 2.0 mg/dL (0.2-1.0) H 03/12/18 22:02 Ur Leukocyte Esterase Small Lux/uL (Negative) 03/12/18 22:02 Urine RBC (Auto) 3 /hpf (0-3) 03/12/18 22:02 Urine Microscopic WBC 10 /hpf (0-5) H 03/12/18 22:02 Ur Squamous Epith Cells 9 /hpf (0-5) H 03/12/18 22:02 Urine Bacteria Rare (<OCC) 03/12/18 22:02 - Hospital Course Hospital Course: 73 yo female with history of HTN and RA admitted because of dizziness. Work ups only revealed left maxillary sinusitis on CT scan and MRI of the head. ECHO was also essentially normal. Metoprolol Succinate 100mg which she takes BID was held. Patient remained asymptomatic since admitted on the floor but her blood pressure was elevated. Consults with Dr Whitman (cardiology) and Dr Hernandes (neurology) were called and appreciated. Patient was discharged in stable condition and advised to take Metoprolol Succinate 100mg PO only once a day and to follow up with Dr Rosas (ENT) for possible Labrynthitis and Left Maxillary Sinusitis. Patient to call Dr Rosas's office for appointment. Discharge Exam - Head Exam Head Exam: ATRAUMATIC, NORMAL INSPECTION, NORMOCEPHALIC - Eye Exam Eye Exam: Normal appearance - ENT Exam ENT Exam: Mucous Membranes Moist - Respiratory Exam Respiratory Exam: absent: Rales, Rhonchi, Wheezes, Respiratory Distress - Cardiovascular Exam Cardiovascular Exam: REGULAR RHYTHM, +S1, +S2 - GI/Abdominal Exam GI & Abdominal Exam: Soft. absent: Tenderness - Rectal Exam Rectal Exam: Deferred - Back Exam Back exam: NORMAL INSPECTION - Neurological Exam Neurological exam: Alert, Oriented x3 - Psychiatric Exam Psychiatric exam: Normal Affect - Skin Skin Exam: Dry, Intact Discharge Plan - Discharge Medications Prescriptions: Metoprolol Succinate 100 mg PO DAILY #30 tab.er.24h - Follow Up Plan Condition: GOOD Disposition: HOME/ ROUTINE
--- NOTE | 2018-03-13 20:15 | CT ---
Date of service: 03/12/2018 PROCEDURE: CT Angiography of the Brain. HISTORY: Dizziness COMPARISON: None available. TECHNIQUE: CT angiography of the intracranial arteries was performed. Coronal and sagittal maximum intensity projection reformated images were generated. This CT exam was performed using one or more of the following dose reduction techniques: Automated exposure control, adjustment of the mA and/or kV according to patient size, and/or use of iterative reconstruction technique. Total exam DLP: 2262.68 FINDINGS: RIGHT CAROTID ARTERIES: Common Carotid Artery: No evidence of significant stenosis Carotid Bifurcation: Normal. Internal Carotid Artery:Normal. External Carotid Artery (proximal branches): Normal. LEFT CAROTID ARTERIES: Common Carotid Artery: Normal. Carotid Bifurcation: Normal. Internal Carotid Artery:Normal. External Carotid Artery (proximal branches): Normal. VERTEBRAL ARTERIES: Right Vertebral Artery: Normal. Left Vertebral Artery: Normal. INTERNAL CEREBRAL ARTERIES: Unremarkable. The skull base, petrous, cavernous and supraclinoid segments are bilaterally widely patent. ANTERIOR CEREBRAL ARTERIES: Unremarkable. A1 and A2 segments are widely patent. Smaller distal branches unremarkable, as visualized. MIDDLE CEREBRAL ARTERIES: Unremarkable. M1 and M2 segments are widely patent. Perisylvian branches grossly symmetric. POSTERIOR CIRCULATION: Basilar Artery: Unremarkable. Distal Vertebral Arteries: Unremarkable. Posterior Cerebral Arteries: Unremarkable. Posterior Inferior Cerebellar Arteries: Unremarkable. ANEURYSM/ VASCULAR MALFORMATIONS: None. OTHER FINDINGS: The thyroid gland is enlarged. There are thyroid nodules seen especially on the left lobe. IMPRESSION: Mild atherosclerotic disease and foci of calcification at the distal vertebral arteries and internal arteries. No evidence of hemodynamically significant stenosis or occlusion in the carotid and intracranial arteries. Preliminary report was submitted by [facility]
--- NOTE | 2018-03-14 00:10 | CON ---
DATE: 03/13/2018 CARDIOLOGY CONSULTATION REASON FOR CONSULTATION: Dizziness and imbalance. HISTORY OF PRESENT ILLNESS: The patient is a 73-year-old female, who has history of hypertension, who was admitted because of lightheadedness and imbalance as well as nausea and vomiting. The patient described on of last week, when she was coming from [place], that at the airport [facility], the patient started experiencing lightheadedness and tripping. She eventually boarded the airplane and after she arrived to [facility], she took an Uber to her house. However, the patient continued to experience dizziness and started experiencing nausea and vomiting and after nearly one week, she decided to come to the emergency room. The patient denies any retrosternal chest pain. The patient with a history of DVT in past. The patient stated that she underwent cardiac catheterization in 2008 at [facility] and was told it was okay. SOCIAL HISTORY: Nonsmoker. She lives with her fiance. MEDICATIONS: Aspirin 81 mg once a day, Lipitor 10 mg once a day, Lovenox 40 mg subcutaneous once a day, Zofran 4 mg intravenously every 6 hours p.r.n. REVIEW OF SYSTEMS: No fever or chills. The patient did experience nausea and vomiting. The patient does not recall experiencing palpitation. PHYSICAL EXAMINATION: GENERAL: The patient is an elderly female, who does not appear to be in acute distress. VITAL SIGNS: Blood pressure 164/99, heart rate 93, temperature 98.1, respirations 16. HEENT: Normocephalic. CHEST: Clear. HEART: S1 and S2 regular. ABDOMEN: Soft. EXTREMITIES: No edema. No calf tenderness. LABORATORY DATA: CBC: Hemoglobin and hematocrit 14.4 and 44.6, white count and platelet count are within normal limits. SMA-7: Sodium 139, potassium 6 which was later adjusted to be 4.2, chloride 106, CO2 of 26, glucose 110, BUN 15, creatinine 0.6. Two sets of troponin's are negative. Total cholesterol 222, LDL cholesterol 134. Both are significantly elevated. D-dimmer is 229. EKG revealed sinus bradycardia, at the rate of 53. Consider lateral ischemic Q-wave changes. Prolonged QT interval. Official echocardiographic study report, normal ejection fraction, relaxation pattern. TSH level is within normal limits. ASSESSMENT: 1. Recurrent dizziness and imbalance. 2. Consider symptomatic bradycardia. 3. Rule out pulmonary embolism. 4. Hypertension and hyperlipidemia. RECOMMENDATIONS: Continue aspirin at 81 mg once a day, subcutaneous Lovenox 40 mg daily, Lipitor 10 mg once a day, Zofran 4 mg intravenously every 6 hours p.r.n. Obtain chest CT and angio to rule out pulmonary embolism. I would request electrophysiology consult. Malvin Whitman MD
== END 2018-03-13 18:54 | disposition home or self-care (01) | DRG 918 ==
LOC: H.ER 16:45 → H.ERHOLD 21:41 → H.TEL 03-13 03:11
PROVIDERS: ADMIT Internal Medicine; ATTEND Internal Medicine
DX: T44.7X1A Poisoning by beta-adrenoreceptor antagonists, accidental (unintentional), initial encounter (principal); I95.2 Hypotension due to drugs; T39.395A Adverse effect of other nonsteroidal anti-inflammatory drugs [NSAID], initial encounter; R42 Dizziness and giddiness; I44.0 Atrioventricular block, first degree; M19.90 Unspecified osteoarthritis, unspecified site; J32.0 Chronic maxillary sinusitis; I10 Essential (primary) hypertension; E78.5 Hyperlipidemia, unspecified; R94.31 Abnormal electrocardiogram [ECG] [EKG]; Z86.718 Personal history of other venous thrombosis and embolism; Z87.891 Personal history of nicotine dependence; Z91.041 Radiographic dye allergy status; Y92.89 Other specified places as the place of occurrence of the external cause